=== PATIENT | female | born 1955 | race Caucasian/White ===

== ENCOUNTER 2023-05-10 18:30 | Inpatient (IN) | payer OTHER ==
[2023-05-10 20:45] VITALS: BMI 27.3
[2023-05-10] MEDS ORDERED: BENZONATATE 200 MG CAPSULE PO PRN (21:43)
[2023-05-10] MEDS ORDERED: IBUPROFEN 400 MG TABLET (FP) PO PRN (21:43)
[2023-05-10] MEDS ORDERED: NALOXONE HCL (KLOXXADO) 8 MG SPRAY NS PRN (21:43)
[2023-05-10] MEDS ORDERED: MAG HYDROX/AL HYDROX/SIMETH 30 ML UNIT-DOSE CUP PO PRN (21:43)
[2023-05-10] MEDS ORDERED: POLYETHYLENE GLYCOL (HEALTHYLAX) 3350 17 GM PACKET PO PRN (21:43)
[2023-05-10] MEDS ORDERED: MAGNESIUM HYDROX 2400MG/30ML ORAL SUSPENSION 30 ML CUP PO PRN (21:43)
[2023-05-10] MEDS ORDERED: NALOXONE HCL 0.4 MG/ML VIAL IM PRN (21:43)
[2023-05-10] MEDS ORDERED: ONDANSETRON *ODT* 4 MG TABLET SL PRN (21:43)
[2023-05-10] MEDS ORDERED: guaiFENesin 600 MG TABLET.ER (FP) PO PRN (21:43)
[2023-05-10] MEDS ORDERED: BENZOCAINE/MENTHOL (CHLORASEPTIC ) LOZENGE MM PRN (21:43)
[2023-05-10] MEDS ORDERED: ACETAMINOPHEN 325 MG TABLET (FP) PO PRN (21:43)
[2023-05-10] MEDS ORDERED: LOPERAMIDE HCL 2 MG CAPSULE PO PRN (21:43)
[2023-05-10] MEDS ORDERED: BISMUTH SUBSALICYLATE 524 MG/30 ML PO PRN (21:43)
[2023-05-10] MEDS ORDERED: chlordiazePOXIDE HCL 25 MG CAPSULE PO PRN (21:47)
[2023-05-10] MEDS ORDERED: MELATONIN 5 MG TABLETS PO SCH (22:00)
[2023-05-10] MEDS ORDERED: chlordiazePOXIDE HCL 25 MG CAPSULE ONE (22:51)
[2023-05-10] MEDS: chlordiazePOXIDE HCL 25 MG CAPSULE PO SCH (22:54)
[2023-05-10] MEDS ORDERED: chlordiazePOXIDE HCL 25 MG CAPSULE PO SCH (23:00)
[2023-05-10] MEDS ORDERED: chlordiazePOXIDE HCL 10 MG CAPSULE PO SCH (23:00)
[2023-05-10] MEDS ORDERED: clonazePAM 0.5 MG ODT TABLETS SL ONE (23:07)
[2023-05-10] MEDS: THIAMINE HCL 100 MG TABLET (FP) PO SCH (23:21)
[2023-05-11] MEDS: chlordiazePOXIDE HCL 25 MG CAPSULE PO SCH ×4 (05:55→22:01)
[2023-05-11 09:34] LABS: HEMATOCRIT 38.4 % (32.4-45.2); HEMOGLOBIN 12.8 GM/dL (10.7-15.3); MCH 32.4 pg (25.7-33.7); MCHC 33.4 g/dl (32.0-36.0); MEAN CELL VOLUME 96.9 fl (80-96); MEAN PLT VOLUME 7.9 fl (7.5-11.1); PLATELET COUNT 231 10^3/uL (134-434); RBC 3.97 M/mm3 (3.60-5.2); RDW 13.9 % (11.6-15.6)
[2023-05-11 09:38] LABS: POTASSIUM 3.6 mmol/L (3.5-5.1)
[2023-05-11 09:48] LABS: CALCIUM 8.6 mg/dL (8.5-10.1)
[2023-05-11 09:49] LABS: ALBUMIN 3.2 g/dl (3.4-5.0); BLOOD UREA NITROGEN 15.6 mg/dL (7-18)
[2023-05-11 09:51] LABS: CREATININE 0.7 mg/dL (0.55-1.3)
[2023-05-11 09:53] LABS: BILIRUBIN,TOTAL 1.4 mg/dL (0.2-1); TOT PROT 6.2 g/dl (6.4-8.2)
[2023-05-11] MEDS: PRENATAL VITAMINS W/ FOLIC ACID TABLET (FP) PO SCH (10:16)
[2023-05-11] MEDS: ESCITALOPRAM OXALATE 10 MG TABLET PO SCH (10:16)
[2023-05-11] MEDS: LOSARTAN POTASSIUM 50 MG TABLET PO SCH (11:46)
[2023-05-11] MEDS: THIAMINE HCL 100 MG TABLET (FP) PO SCH (21:33)
[2023-05-11] MEDS: MELATONIN 5 MG TABLETS PO SCH (21:33)
[2023-05-12] MEDS: IBUPROFEN 600 MG TABLET (FP) PO PRN ×2 (02:43→22:08)
[2023-05-12] MEDS: chlordiazePOXIDE HCL 25 MG CAPSULE PO SCH ×4 (05:29→22:07)
[2023-05-12] MEDS: LOSARTAN POTASSIUM 50 MG TABLET PO SCH (10:03)
[2023-05-12] MEDS: ESCITALOPRAM OXALATE 10 MG TABLET PO SCH (10:03)
[2023-05-12] MEDS: PRENATAL VITAMINS W/ FOLIC ACID TABLET (FP) PO SCH (10:04)
[2023-05-12] MEDS: MELATONIN 5 MG TABLETS PO SCH (22:06)
[2023-05-12] MEDS: THIAMINE HCL 100 MG TABLET (FP) PO SCH (22:06)
[2023-05-13] MEDS ORDERED: chlordiazePOXIDE HCL 10 MG CAPSULE PO PRN
[2023-05-13] MEDS: chlordiazePOXIDE HCL 10 MG CAPSULE PO SCH ×4 (05:20→22:02)
[2023-05-13] MEDS: LOSARTAN POTASSIUM 50 MG TABLET PO SCH (10:08)
[2023-05-13] MEDS: PRENATAL VITAMINS W/ FOLIC ACID TABLET (FP) PO SCH (10:09)
[2023-05-13] MEDS: ESCITALOPRAM OXALATE 10 MG TABLET PO SCH (10:09)
[2023-05-13] MEDS: hydrOXYzine PAMOATE 25 MG CAPSULE (FP) PO PRN (10:10)
[2023-05-13] MEDS: MELATONIN 5 MG TABLETS PO SCH (22:01)
[2023-05-13] MEDS: THIAMINE HCL 100 MG TABLET (FP) PO SCH (22:02)
[2023-05-14] MEDS: chlordiazePOXIDE HCL 10 MG CAPSULE PO SCH ×2 (05:30→17:20)
[2023-05-14] MEDS: PRENATAL VITAMINS W/ FOLIC ACID TABLET (FP) PO SCH (09:17)
[2023-05-14] MEDS: LOSARTAN POTASSIUM 50 MG TABLET PO SCH (09:17)
[2023-05-14] MEDS: ESCITALOPRAM OXALATE 10 MG TABLET PO SCH (09:17)
[2023-05-14 20:44] VITALS: TEMP 97.7
[2023-05-14] MEDS: MELATONIN 5 MG TABLETS PO SCH (22:08)
[2023-05-14] MEDS: THIAMINE HCL 100 MG TABLET (FP) PO SCH (22:08)
[2023-05-14] MEDS: hydrOXYzine PAMOATE 25 MG CAPSULE (FP) PO PRN (22:09)
[2023-05-15] MEDS ORDERED: chlordiazePOXIDE HCL 10 MG CAPSULE PO ONE (05:00)
[2023-05-15 06:10] VITALS: BP 147/74; PULSE 64; RESP 16
== END 2023-05-15 09:09 | disposition home or self-care (01) | DRG 897 ==
LOC: YASAS 18:30 → Y3N 22:48
PROVIDERS: ADMIT Allergy & Immunology; ATTEND Allergy & Immunology
PROC: HZ2ZZZZ Detoxification Services for Substance Abuse Treatment (ICD-10-PCS; principal; 2023-05-10)
DX: F10.230 Alcohol dependence with withdrawal, uncomplicated (principal); F41.9 Anxiety disorder, unspecified; F32.A Depression, unspecified; I10 Essential (primary) hypertension; E78.5 Hyperlipidemia, unspecified; Z87.891 Personal history of nicotine dependence
CPT/HCPCS: 36415; 80053; 85027; 86780; 87635; 87811; 93005; 93010